=== PATIENT | female | born 1960 | race Caucasian/White ===

== ENCOUNTER → 2018-02-01 | Outpatient (CLI) | payer BC, SELFPAY ==
[~2018-02-01] MED LIST: ESTROTEST
== END ==
LOC: MAMMO 17:19
PROVIDERS: ATTEND Obstetrics & Gynecology
DX: Z12.31 Encounter for screening mammogram for malignant neoplasm of breast (principal)
CPT/HCPCS: 77067

== ENCOUNTER 2018-04-11 08:48 | Inpatient (IN) | payer SELFPAY ==
[~2018-04-11] VITALS: Ht 157.5 cm; Wt 73.9 kg
[~2018-04-11 08:48] MED LIST changes: +BUPIVACAINE 0.25% 30ML SDV INJ ONE; +BUPIVACAINE 0.25%/EPI 30ML SDV INJ ONE; +CRESTOR5 MG PO; +DUAVEE PO; +HYDROGEN PEROXIDE 120 ML BTL ONE
--- OUTSIDE RECORDS SUMMARY | 2018-04-11 08:59 | XMS REPORT ---
Author Author [facility] Address Unknown Phone Unavailable Care Team Providers Care Store Consultant Name Role Phone VIRGINIA MARQUEZ Unavailable Unavailable Problems This patient has no known problems. Allergies, Adverse Reactions, Alerts This patient has no known allergies or adverse reactions. Medications This patient has no known medications. Results Test Description Test Time Test Comments Text Results Atomic Results Result Comments MAMMOGRAPHY DIGITAL SCR BILAT 2018-02-01 17:44:00 [place] [address] Patient Name: BARAK CELIS MR #: [id number] : 1960 Age/Sex: 58/F Req #: [id number] [facility] Physician: Ordered by: VIRGINIA MARQUEZ MD Report #: [id number] Location: MAMMO Room/Bed: Procedure: MG/MAMMOGRAPHY DIGITAL SCR BILAT Exam Date: 02/01/18 Exam Time: 1740 REPORT STATUS: Signed #[id number] - MGSCRBIL #BILATERAL DIGITAL SCREENING MAMMOGRAM WITH CAD: 02/01/2018 CLINICAL: Routine screening. Comparison is made to exams dated: 01/19/2017 mammogram and 01/20/2016 mammogram - [facility]. There are scattered fibroglandular elements in both breasts. Current study was also evaluated with a Computer Aided Detection (CAD) system. No new significant masses, calcifications, or other findings are seen in either breast. IMPRESSION: BENIGN There is no mammographic evidence of malignancy. A 1 year screening mammogram is recommended. The patient will be notified by letter of the results. Ginna Coles M.D. ks/:02/06/2018 10:31:56 Nurse Discharge: Ramandeep CORTÉS)(Tyrone), [facility] letter sent: Normal Exam Mammogram BI-RADS: 2 Benign Dictated By: GINNA COLES MD 1031 Transcribed By: ELIZABETH on 02/06/18 1031 COPY TO: VIRGINIA MARQUEZ MD BONE DXA DUAL ENERGY [place] [address] Patient Name: BARAK CELIS MR #: [id number] : 1960 Age/Sex: 56/F Req #: [id number] [facility] Physician: Ordered by: VIRGINIA MARQUEZ MD Report #: [id number] Location: MAMMO Room/Bed: Procedure: [id number] DX/BONE DXA DUAL ENERGY Exam Date: Exam Time: REPORT STATUS: Signed PROCEDURE: BONE DXA DUAL ENERGY COMPARISON: [facility], DX, BONE DXA DUAL ENERGY, 03/18/2016, 17:00. FINDINGS: Proximal femur bone mineral density (BMD) (g/cm2): 0.761 Femur T-score (standard deviation relative to young adult mean BMD): -1.5 Femur Z-score (standard deviation relative to age-matched control group): -1.7 Lumbar bone mineral density (BMD) (g/cm2): 0.865 Lumbar T-score (standard deviation relative to young adult mean BMD): -1.7 Lumbar Z-score (standard deviation relative to age-matched control group): -0.5 Change since prior exam (%): Femur: 2.6% Spine: 3.7%. CONCLUSION: World Health Organization Classification: Osteopenia slightly improved. Fracture risk remains increased. *The Z-score is provided for informational purposes. The T- score is preferable for clinical decisions. When comparing exams, a change of >4% is considered statistically significant. SUGGESTED RECOMMENDATIONS: Normal T Osteopenia: Consideration should be given to use of calcium supplementation, daily multiple vitamins and adequate exercise, as preventive measures against osteoporosis, if clinically indicated. Oste oporosis T Severe Osteoporosis: In addition to the above, consideration should be given to medical therapy against osteoporosis, if clinically indicated. America Hou M.D. Dictated by: America Hou M.D. on 01/19/2017 at 18:48 Electronically approved by: America Hou M.D. on 01/19/2017 at 18:48 Dictated By: JOSE RAFAEL HOU MD, MD 47 Transcribed By: PIYUSH on 01/19/171847 COPY TO: VIRGINIA MARQUEZ MD MAMMOGRAPHY DIGITAL SCR [place] [address] Patient Name: BARAK CELIS MR #: [id number] : 1960 Age/Sex: 56/F Req #: [id number] Physician: Ordered by: VIRGINIA MARQUEZ MD Report #: [id number] Location: MAMMO Room/Bed: Procedure: [id number] MG/MAMMOGRAPHY DIGITAL SCR BILAT Exam Date: 01/19/17 Exam Time: 1750 REPORT STATUS: Signed #[id number] - MGSCRBIL #BILATERAL DIGITAL SCREENING MAMMOGRAM WITH CAD: 01/19/2017 CLINICAL: Routine screening. Comparison is made to exams dated: 01/20/2016 mammogram, 12/31/2014 mammogram, 05/20/2014 mammogram, 12/10/2013 mammogram and 11/12/2013 mammogram - [facility]. Current study contains 4 films. There are scattered fibroglandular elements in both breasts. Current study was also evaluated with a Computer Aided Detection (CAD) system. There are benign calcifications in the right breast. No significant masses, calcifications, or other findings are seen in either breast. There has been no significant interval change. IMPRESSION: BENIGN There is no mammographic evidence of malignancy. A 1 year screening mammogram is recommended. The patient will be notified by letter of the results. Tejas chappell/elizabeth:01/20/2017 14:00:20 Nurse Discharge: Ramandeep DE(R)(M), [facility] letter sent: Compared to Prior B9 Mammogram BI-RADS: 2 Benign Dictated By: TEJAS GONZALEZ DO 1400 Transcribed By: ELIZABETH on 01/20/17 1400 COPY TO: VIRGINIA MARQUEZ MD
[2018-04-11] MEDS ORDERED: CEFAZOLIN SOD 2 GM/D5W 50ML 50 ML IV ONE (09:07)
[2018-04-11] MEDS ORDERED: SCOPOLAMINE 1.5 MG PATCH ONE (10:29)
--- NOTE | 2018-04-11 10:33 | Diagnostic Imaging Report ---
PROCEDURE: Frontal and lateral views of the chest. COMPARISON: None. INDICATIONS: PRE OP GASTRIC SLEEVE FINDINGS: Lines/tubes: None. Lungs: The lungs are well inflated and clear. There is no evidence of pneumonia or pulmonary edema. Pleura: There is no pleural effusion or pneumothorax. Heart and mediastinum: The heart and the mediastinum are normal. Bones: No acute bony abnormality. Upper abdomen: A gastric lap band is noted overlying the upper abdomen. IMPRESSION: No acute radiographic abnormality. Dictated by: ALESSANDRA MASTERSON M.D. on 04/11/2018 at 10:41 Electronically approved by: ALESSANDRA MASTERSON M.D. on 04/11/2018 at 10:41
[2018-04-11] MEDS ORDERED: LIDOCAINE HCL (LTA) 4 ML SOLN ONE (10:40)
[2018-04-11] MEDS ORDERED: HYDROCODONE/APAP 7.5MG-325MG 1 EA TAB PO PRN (14:45)
[2018-04-11] MEDS: SODIUM CHLORIDE 0.9% 1000ML 1,000 ML IV SCH ×2 (14:45→20:38)
[2018-04-11] MEDS ORDERED: PROZAC20 MG PO (14:56)
[2018-04-11] MEDS ORDERED: ASPIRIN CHEW81 MG PO (14:56)
[2018-04-11] MEDS: ONDANSETRON HCL INJ 2 MG/ML VIAL IV PRN ×2 (15:29→21:07)
[2018-04-11] MEDS ORDERED: PANTOPRAZOLE 40 MG 10ML VIAL IV STA (15:36)
[2018-04-11 15:41] VITALS: BP 128/72
[2018-04-11 15:44] VITALS: BP 128/72
[2018-04-11] MEDS: ENOXAPARIN SOD INJ 40 MG/0.4 ML SYR SC SCH (17:24)
[2018-04-11] MEDS ORDERED: DEXAMETHASONE SOD PHOS INJ 4 MG/ML VIAL ONE (18:23)
[2018-04-11] MEDS ORDERED: FENTANYL CITRATE/PF 100MCG/2 ML INJ ONE (18:23)
[2018-04-11] MEDS ORDERED: PROPOFOL IV EMULSION 10 MG/ML 20 ML VIAL ONE (18:23)
[2018-04-11] MEDS ORDERED: LABETALOL HCL 5 MG/ML 20ML VIAL ONE (18:23)
[2018-04-11] MEDS ORDERED: ONDANSETRON HCL INJ 2 MG/ML VIAL ONE (18:23)
[2018-04-11] MEDS ORDERED: ROCURONIUM BROMIDE 10 MG/ML 5ML VIAL ONE (18:23)
[2018-04-11] MEDS ORDERED: MIDAZOLAM HCL 2 MG/2 ML VIAL ONE (18:23)
[2018-04-11] MEDS ORDERED: ACETAMINOPHEN 1000 MG/100 ML IV ONE (18:23)
[2018-04-11] MEDS ORDERED: LIDOCAINE HCL 2% LOCAL INJ 5 ML SDV VIAL INJ ONE (18:23)
[2018-04-11] MEDS ORDERED: SEVOFLURANE INHAL SOLN 250 ML PEN BTL ONE (18:23)
[2018-04-11 20:00] VITALS: BP 135/63
[2018-04-11 20:40] VITALS: BP 135/63
[2018-04-11] MEDS ORDERED: ZOLPIDEM TARTRATE 5 MG TAB PO PRN (23:00)
--- NOTE | 2018-04-11 23:17 | Operative Report ---
DATE OF PROCEDURE: April 11, 2018 PREOPERATIVE DIAGNOSES: 1. Obesity. 2. Status post laparoscopic adjustable gastric band placement. 3. Endometriosis. POSTOPERATIVE DIAGNOSES: 1. Obesity. 2. Status post laparoscopic adjustable gastric band placement. 3. Endometriosis. PREOPERATIVE INDICATION: Treat disease, prevent obesity-related complications. PROCEDURES: 1. Laparoscopic removal of adjustable gastric band with conversion to sleeve gastrectomy. 2. Laparoscopic bilateral salpingo-oophorectomy (see Dr. Valdivia's note for further details). ANESTHESIA: General. CUT ROLL MACHINE OFFBEARER: Radhames Lerma, surgical assistant art director (needed due to complexity of case). FLUIDS: 1200 mL crystalloid. EBL: 50 mL. DRAINS: None. COMPLICATIONS: None. SPECIMENS: Partial stomach (opened at the back table). GRAFTS: None. FINDINGS: 1. Severe adhesions from previously placed laparoscopic adjustable gastric band, otherwise normal upper GI anatomy. 2. Negative intraoperative EGD leak test. PROCEDURE IN DETAIL: The patient was brought to the operating room and was intubated under general endotracheal anesthesia. She was positioned supine with both arms abducted and all pressure points appropriately padded. She was sterilely prepped and draped in the usual fashion. A preprocedural pause was performed, identifying the patient and the use of perioperative antibiotics, the intended procedure, and the staff surgeon. A primary 5 mm left subcostal incision was made and a Veress needle was inserted to insufflate the abdomen to a pressure of 15 mmHg pressure. A 0-degree 5-mm Optiview trocar was placed under direct visualization, no injuries were noted. Four additional trocars were placed in the standard positions and a liver retractor was placed. I then identified the area of the adjustable gastric band. There were multiple adhesions from the stomach to the band as well as from the stomach to the undersurface of the left lobe of the liver. These were carefully lysed with a combination of scissors, harmonic scalpel, blunt dissection, and the [place] LigaSure device. This adhesiolysis took about an hour to do. Once this was done, I was able to finally free up the adjustable gastric band and remove this through the right periumbilical port site. I then inserted an adult-size endoscope against the lesser curvature of the stomach to be used as a bougie and the greater curvature of the stomach, about 75% of the volume of stomach, was stapled off using multiple firings of Seam[employer] enforced [employer] stapling device using a combination of green loads and black loads depending on the thickness of the tissue. Once this was complete, I then removed the specimen through the right periumbilical port site. We conducted an intraoperative EGD leak test, no leaks were identified. Hemostasis was assured. Dr. Valdivia then scrubbed in and did her portion of the case, which included the laparoscopic bilateral salpingo-oophorectomy. Please see her notes for further details. The patient tolerated the procedure well. TYPE OF WOUND: Type 2, clean, contaminated. Job#: [id number]
[2018-04-12] VITALS: BP 144/63
[2018-04-12] MEDS: MORPHINE SULFATE 2 MG/ML SYR IV PRN ×2 (00:15→14:45)
[2018-04-12 04:00] VITALS: BP 136/82
[2018-04-12] MEDS: SODIUM CHLORIDE 0.9% 1000ML 1,000 ML IV SCH ×2 (04:48→14:41)
[2018-04-12] MEDS: ENOXAPARIN SOD INJ 40 MG/0.4 ML SYR SC SCH ×2 (05:33→16:56)
[2018-04-12 05:52] LABS: BASOPHILS % 0.2 % (0.0-1.0); HEMATOCRIT 38.8 % (34.2-44.1); HEMOGLOBIN 12.4 g/dL (12.0-16.0); LYMPHOCYTES # (AUTO) 1.7 (1.0-3.2); LYMPHOCYTES % 17.7 % (18.0-39.1); MEAN CORPUSCULAR HEMOGLOBIN 26.6 pg (28-32); MEAN CORPUSCULAR VOLUME 83.1 fL (81-99); MONOCYTES # (AUTO) 0.7 (0.2-0.8); MONOCYTES % 6.9 % (4.4-11.3); NEUTROPHILS # (AUTO) 7.2 (2.1-6.9); NEUTROPHILS % 74.1 % (38.7-80.0); PLATELET COUNT 220 x10e3/uL (140-360); RED BLOOD COUNT 4.67 x10e6/uL (3.6-5.1); RED CELL DISTRIBUTION WIDTH 14.6 % (11.7-14.4)
[2018-04-12 06:08] LABS: ANION GAP 9.6 mmol/L (8-16); BLOOD UREA NITROGEN 7 mg/dL (7-26); BUN/CREATININE RATIO 11 (6-25); CARBON DIOXIDE 28 mmol/L (22-29); CHLORIDE 109 mmol/L (98-107); CREATININE, SERUM 0.65 mg/dL (0.57-1.11); EST GLOMERULAR FILTRATION RATE > 60 ML/MIN (60-); GLUCOSE 108 mg/dL (74-118); MAGNESIUM 2.2 MG/DL (1.3-2.1); PHOSPHORUS 2.7 MG/DL (2.3-4.7); POTASSIUM 3.6 mmol/L (3.5-5.1); SODIUM 143 mmol/L (136-145)
[2018-04-12 07:51] VITALS: BP 133/63
[2018-04-12] MEDS ORDERED: PANTOPRAZOLE 40 MG 10ML VIAL IV SCH (09:00)
[2018-04-12 10:10] VITALS: BP 133/63
[2018-04-12 12:01] VITALS: BP 128/61
[2018-04-12] MEDS: ONDANSETRON HCL INJ 2 MG/ML VIAL IV PRN (12:14)
[2018-04-12 15:45] VITALS: BP 132/61
--- NOTE | 2018-05-01 14:38 | Operative Report ---
DATE OF PROCEDURE: April 11, 2018 ASSISTANTS: Dr. Rick Paz and SHERRIE Roman. PREOPERATIVE DIAGNOSIS: Pelvic pain. POSTOPERATIVE DIAGNOSES 1. Pelvic pain. 2. Pelvic adhesions secondary to endometriosis. OPERATIONS PERFORMED 1. Laparoscopic bilateral salpingo-oophorectomy. 2. Lysis of adhesions. ANESTHESIA: General. ESTIMATED BLOOD LOSS: Minimal. COMPLICATIONS: None. FINDINGS: The patient's uterus is small and anteverted with no apparent abnormalities. However, there are significant adhesions between the right adnexa, pelvic side wall, cul-de-sac, peritoneum, as well as the posterior uterine serosa. The left adnexa was similarly scarred but also adherent to the sigmoid colon. SPECIMENS: Include bilateral adnexa. INDICATIONS: The patient is a 58-year-old 1, para 2 with a history of chronic pelvic pain, desiring definitive surgical management. PROCEDURE NOTE: Prior to the procedure, the risks, benefits, indications and alternatives were discussed and the patient agreed to proceed. Please see Dr. Rick Paz's note for laparoscopic revision of gastric band to gastric sleeve. At the time of the beginning of my portion of the procedure, a Magallanes catheter was placed sterilely within the bladder and the patient was repositioned into steep Trendelenburg position. An additional port site was placed in the patient's left lower quadrant. A 5 mm trocar was placed at a site approximately 4 cm anterior and superior to the ASIS under direct visualization with the laparoscope. The right tube and ovary were held with a blunt retractor on gentle tension and serially excised from all adhesions using a LigaSure device. The tube and ovary were then serially excised using a LigaSure device to sequentially coagulate and cut at the isthmus of the fallopian tube, the utero-ovarian ligament and the infundibulopelvic ligament. The surgical sites were noted to be hemostatic. The same procedure was then repeated on the contralateral side with good hemostasis noted. The left and right adnexa were then removed from the previously placed 11 mm port site by Dr. Paz. Specimens were sent to the pathologist. Remainder of procedure as well as closure of port sites as noted per Dr. Paz's operative report. Job#: [id number]
== END 2018-04-12 17:08 | disposition home or self-care (01) | DRG 743 ==
LOC: OR 08:48 → PACU V 14:09 → MED/SURG 14:28
PROVIDERS: ADMIT Surgery; ATTEND Surgery
PROC: 0UT24ZZ Resection of Bilateral Ovaries, Percutaneous Endoscopic Approach (ICD-10-PCS; 2018-04-11)
PROC: 0DB64Z3 Excision of Stomach, Percutaneous Endoscopic Approach, Vertical (ICD-10-PCS; principal; 2018-04-11 10:30)
PROC: 0UT74ZZ Resection of Bilateral Fallopian Tubes, Percutaneous Endoscopic Approach (ICD-10-PCS; 2018-04-11 10:30)
DX: N80.2 Endometriosis of fallopian tube (principal); N80.1 Endometriosis of ovary; R10.2 Pelvic and perineal pain; I10 Essential (primary) hypertension; E78.5 Hyperlipidemia, unspecified; R73.09 Other abnormal glucose; K21.9 Gastro-esophageal reflux disease without esophagitis; Z68.30 Body mass index [BMI] 30.0-30.9, adult; E66.9 Obesity, unspecified; Z98.84 Bariatric surgery status; N80.9 Endometriosis, unspecified; N73.6 Female pelvic peritoneal adhesions (postinfective)
CPT/HCPCS: 36415; 71046; 80048; 83735; 84100; 85025; 88304; 88305; 88307; 88342; 93005; J0690; J1100; J1650; J2001; J2250; J2270; J2405; J7030

== ENCOUNTER → 2019-02-15 | Outpatient (CLI) | payer OTHER ==
[~2019-02-15] MED LIST changes: +ASPIRIN CHEW81 MG PO; -BUPIVACAINE 0.25% 30ML SDV INJ ONE; -BUPIVACAINE 0.25%/EPI 30ML SDV INJ ONE; -HYDROGEN PEROXIDE 120 ML BTL ONE; +PROZAC20 MG PO
--- NOTE | 2019-02-20 08:44 | Diagnostic Imaging Report ---
#[id number] - MGSCRBIL #BILATERAL DIGITAL SCREENING MAMMOGRAM WITH CAD: 02/15/2019 CLINICAL: Routine screening. Comparison is made to exams dated: 02/01/2018 mammogram, 01/19/2017 mammogram, 01/20/2016 mammogram, 12/31/2014 mammogram and 05/20/2014 mammogram - [facility]. Current study contains 4 films. There are scattered fibroglandular elements in both breasts. Current study was also evaluated with a Computer Aided Detection (CAD) system. Benign calcification is present in the right breast. No significant masses, calcifications, or other findings are seen in either breast. IMPRESSION: BENIGN There is no mammographic evidence of malignancy. A 1 year screening mammogram is recommended. The patient will be notified by letter of the results. NAKIA SAUER M.D. ct/penrad:02/19/2019 12:34:17 Fluxer: Ramandeep DE(Lianne)(Tyrone), [facility] letter sent: Normal Exam Mammogram BI-RADS: 2 Benign
== END ==
LOC: MAMMO 08:56
PROVIDERS: ATTEND Obstetrics & Gynecology
DX: Z12.31 Encounter for screening mammogram for malignant neoplasm of breast (principal)
CPT/HCPCS: 77067

== ENCOUNTER → 2020-02-17 | Outpatient (CLI) | payer BC | LOC: MAMMO 17:17 | PROVIDERS: ATTEND Obstetrics & Gynecology | DX: Z12.31 Encounter for screening mammogram for malignant neoplasm of breast (principal) | CPT/HCPCS: 77067 ==

== ENCOUNTER → 2020-03-10 | Outpatient (CLI) | payer BC | LOC: MAMMO 16:13 | PROVIDERS: ATTEND Obstetrics & Gynecology | DX: N64.89 Other specified disorders of breast (principal) ==

== ENCOUNTER → 2020-03-24 | Outpatient (CLI) | payer BC ==
--- NOTE | 2020-03-25 09:20 | Diagnostic Imaging Report ---
#[id number] - [id number] #UNILATERAL RIGHT DIGITAL DIAGNOSTIC MAMMOGRAM POST-NEEDLE BIOPSY: 03/24/2020 Comparison is made to exam dated: 03/24/2020 ultrasound biopsy - [facility]. There are scattered fibroglandular elements in the right breast. IMPRESSION: POST PROCEDURE MAMMOGRAM FOR MARKER PLACEMENT Biopsy marker is present in the region of the right breast finding at 10 o'clock corresponding to the recent biopsy. Possible biopsy marker migration on the CC view. Rodrigo Ruiz vs/:03/24/2020 13:18:45 Lean Engineer: Ramandeep Gore RT(R)(M), [facility] Mammogram BI-RADS: Post-procedure mammogram for marker placement
--- NOTE | 2020-03-25 09:20 | Diagnostic Imaging Report ---
#[id number] - [id number] ULTRASOUND GUIDED BIOPSY RIGHT BREAST: 03/24/2020 PATIENT CONSENT: According to [facility] requirements, a time out was performed, correct site was localized and the patient was consented. PROCEDURE DESCRIPTION: Written informed consent for biopsy and marker placement was obtained after full discussion with patient of procedure, risks, benefits and alternatives. A licensed land surveyor out was taken to confirm patient and procedure. Using full barrier sterile technique, 1% Lidocaine local anesthesia, and real time ultrasound guidance, the 9 mm lesion in the right breast at 10 o'clock was biopsied using a 14 ga core device. Specimens were submitted for histology. A micromarker was placed at the biopsy site for future reference. A sterile bandage was applied at the entry site. The patient was sent for a post biopsy mammogram with no immediate complications noted. Correlation is made to exams dated: 03/10/2020 mammogram, 02/17/2020 mammogram and 02/15/2019 mammogram - [facility]. IMPRESSION: ULTRASOUND GUIDED BIOPSY Ultrasound guided biopsy of the 9 mm abnormality in the right breast middle depth was successful. Immediate post biopsy mammogram will be performed. Rodrigo Ruiz vs/:03/24/2020 13:16:10 Vacuum Truck Driver: BARAK LOVELACE [facility], [facility] [id number]
== END ==
LOC: US 11:05
PROVIDERS: ATTEND Obstetrics & Gynecology
DX: N63.10 Unspecified lump in the right breast, unspecified quadrant (principal)
CPT/HCPCS: 88305

== ENCOUNTER → 2020-09-10 | Outpatient (CLI) | payer BC | LOC: MAMMO 10:55 | PROVIDERS: ATTEND Obstetrics & Gynecology | DX: N63.10 Unspecified lump in the right breast, unspecified quadrant (principal) ==

== ENCOUNTER → 2021-03-24 | Outpatient (CLI) | payer BC | LOC: MAMMO 12:25 | PROVIDERS: ATTEND Obstetrics & Gynecology | DX: Z12.31 Encounter for screening mammogram for malignant neoplasm of breast (principal); M81.0 Age-related osteoporosis without current pathological fracture; M85.88 Other specified disorders of bone density and structure, other site | CPT/HCPCS: 77067; 77080 ==

== ENCOUNTER → 2022-03-17 | Outpatient (CLI) | payer BC | LOC: MAMMO 16:41 | PROVIDERS: ATTEND Obstetrics & Gynecology | DX: Z12.31 Encounter for screening mammogram for malignant neoplasm of breast (principal) | CPT/HCPCS: 77067 ==